=== PATIENT | female | born 1985 | race Caucasian/White ===

== ENCOUNTER 2022-02-22 17:06 | Emergency (ER) | payer OTHER, SELFPAY ==
[2022-02-22 17:10] VITALS: BP 135/70; PULSE 97; RESP 20; TEMP 36.7; O2SAT 97
--- NOTE | 2022-02-22 18:08 | ED.FEMALEGU ---
HPI - Female Genitourinary General Chief complaint: Urogenital-Female Stated complaint: poss uti Time Seen by Provider: 02/22/22 17:50 Source: patient, RN notes reviewed and old records reviewed History of Present Illness HPI Narrative: 36 year old female who presents to [facility] care with 4-5 day history of urinary pain, low back pain and urinary frequency. Patient reports that she has been drinking cranberry juice at home and feels that it has helped her symptoms some. Patient denies any known fevers, chills or sweats, denies any nausea or vomiting or acute abdominal pain.Patient reports that she has no vaginal discharge or itching or suspected STD exposure. Patient has not had Covid vaccinations or flu shot this season. MD elicited complaint: UTI Related Data Home Medications Medication Instructions Recorded Confirmed bupropion HCl 150 mg 24 hr tablet, 150 mg PO DIRECTED 02/22/22 02/22/22 extended release fluoxetine 20 mg tablet 20 mg DIRECTED 02/22/22 02/22/22 Allergies Allergy/AdvReac Type Severity Reaction Status Date / Time No Known Allergies Allergy Verified 01/27/22 15:34 Review of Systems Review of Systems: CONSTITUTIONAL: Denies fever, chills, or sweats. EYES: Denies visual changes, redness, or discharge. ENT: Denies rhinorrhea, congestion, sore throat, or otalgia. CARDIOVASCULAR: Denies chest pain, palpitations, or edema. RESPIRATORY: Denies cough or dyspnea. GASTROINTESTINAL: Denies abdominal pain, nausea, vomiting, or diarrhea. GENITOURINARY: Positive for dysuria no visible hematuria. SKIN: Denies rash or itching. MUSCULOSKELETAL: Low back pain, no joint pain, or body aches NEUROLOGIC: Denies headache, numbness, or weakness. PSYCHIATRIC: Positive for anxiety or depression. [facility] Past Medical History Medical History Anxiety Depression Encounter for screening examination for sexually transmitted disease Gonorrhea Trichomonal vaginitis Surgical History Surgical History Delivery by section 11/26/04 primary c/s 08/11/06 rpt c/s 05/16/08 rpt c/s w/tubal History of cholecystectomy History of hernia repair @ 5 months old History of orthopedic surgery rt wrist tendon transfer History of tubal ligation (~05/16/08) Family History Family History Mother Chronic obstructive lung disease Hypertension Social History Social History Smoking status: Current some day smoker Tobacco type: e-cigarettes/vaping Alcohol intake: never Substance use: never Substance use type: does not use Additional living arrangements comments: 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 There is no relevant family history pertinent to the presenting complaint Exam Narrative: GENERAL: Well-appearing, well-nourished, and in no acute distress. HEAD: Normocephalic, atraumatic. EYES: PERRLA and EOMI. ENT: Nares clear, no rhinorrhea or epistaxis. Mucous membranes moist.TM's normal with good light reflex, throat pink with no lesions or exudates or tonsil swelling NECK: Supple.no lymphadenopathy CHEST: Clear to auscultation. No respiratory distress. HEART: Regular rate and rhythm. No murmur heard. Normal peripheral pulses. ABDOMEN: Soft, nontender, nondistended, normal active bowel sounds.dysuria and frequency of urination EXTREMITIES: Normal range of motion. No edema.low back pain SKIN: Warm, dry, no rash. NEURO: No focal deficits. Alert and oriented x3. Course Course Level of Care: Express Care Visit Vital Signs Vital si
== END 2022-02-22 18:27 | disposition home or self-care (01) ==
PROVIDERS: Emergency Provider Registered Nurse; PCP Internal Medicine
DX: N39.0 Urinary tract infection, site not specified (principal); F17.290 Nicotine dependence, other tobacco product, uncomplicated
CPT/HCPCS: 81003; 87086; 87088; 99213; G0463

== ENCOUNTER 2022-04-12 18:22 | Emergency (ER) | payer OTHER, SELFPAY ==
[2022-04-12 18:32] VITALS: BP 124/72; PULSE 92; RESP 20; TEMP 36.7; O2SAT 100
--- NOTE | 2022-04-12 18:39 | ED.FEMALEGU ---
HPI - Female Genitourinary General Chief complaint: Urogenital-Female Stated complaint: Urinary Problem Time Seen by Provider: 04/12/22 18:39 Source: patient Mode of arrival: ambulatory Limitations: no limitations History of Present Illness HPI Narrative: Ms. Rios is a 36-year-old female patient presenting to the clinic today with complaints of urinary symptoms. She reports her symptoms have been going on for over a week. She notes some urinary irritation at the urethra, some low back pain, and at times urinary frequency. She denies any new sexual partners but also notes some vaginal discharge. Related Data Allergies Allergy/AdvReac Type Severity Reaction Status Date / Time No Known Allergies Allergy Verified 04/12/22 18:37 Review of Systems Review of Systems: Pertinent positives per HPI. Patient denies any fever, chills, rash, headache, visual changes, dizziness, cough, runny nose, sore throat, shortness of breath, chest pain, palpitations, nausea, vomiting, diarrhea, constipation, abdominal pain. PMFSH Past Medical History Medical History Anxiety Depression Encounter for screening examination for sexually transmitted disease Gonorrhea Trichomonal vaginitis Surgical History Surgical History Delivery by section 11/26/04 primary c/s 08/11/06 rpt c/s 05/16/08 rpt c/s w/tubal History of cholecystectomy History of hernia repair @ 5 months old History of orthopedic surgery rt wrist tendon transfer History of tubal ligation (~05/16/08) Family History Family History Mother Chronic obstructive lung disease Hypertension Social History Social History Smoking status: Current some day smoker Tobacco type: e-cigarettes/vaping Alcohol intake: never Substance use: never Substance use type: does not use Additional living arrangements comments: 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 There is no relevant family history pertinent to the patient complaint. Exam Narrative: General: Well-developed, well nourished, in no apparent distress. Head: Normocephalic, atraumatic. Cardio: Regular rate and rhythm, s1 and s2 normal, no murmur appreciated. Resp: Clear to auscultation bilaterally, no rhonchi, rales, wheezing or rubs. Abdomen: Soft, pliable, bowel sounds present in all quadrants, non-tender to palpation, no organomegly, no CVAT tenderness. : Pelvic exam performed with (Katharina so her external female genitalia was normal without lesions or masses meatus patient to follow-up in 2-3 days with primary care provider. Urinary meatus with patent without discharge, redness at bedside. Verbal consent obtained from patient. Normal external female genitalia without lesions or masses, Urinary meatus: patent without discharge,no mass Vagina: No lesions or masses, or discharge, white chunky vaginal discharge Cervix: pink without mass, lesions, discharge, or tenderness. Adnexa: without palpable mass or tenderness. Course Course Emergency Course: Portions of this record may have been created with voice recognition software. Level of Care: Express Care Visit Vital Signs Vital signs: Vital Signs Temperature 36.7 C 04/12/22 18:32 Pulse Rate 92 04/12/22 18:32 Respiratory Rate 20 04/12/22 18:32 Blood Pressure 124/72 04/12/22 18:32 Pulse Oximetry 100 04/12/22 18:32 Oxygen Delivery Room Air 04/12/22 18:32 Temperature 36.7 C 04/12/22 18:32 Pulse Rate
== END 2022-04-12 19:23 | disposition home or self-care (01) ==
PROVIDERS: Emergency Provider Nurse Practitioner Family; PCP Internal Medicine
DX: N89.8 Other specified noninflammatory disorders of vagina (principal); M54.50 Low back pain, unspecified; F17.290 Nicotine dependence, other tobacco product, uncomplicated
CPT/HCPCS: 81003; 87070; 87491; 87591; 87661; 99214; G0463

== ENCOUNTER 2022-04-28 00:47 | Day surgery (SDC) | payer OTHER, SELFPAY ==
[2022-04-20 10:23] VITALS: BMI 46.6
--- NOTE | 2022-04-20 10:31 | PC.NURSE ---
Report to the Outpatient Waiting Room, entrance under the green pavilion located off [facility], at time 0800 on date 04/28/22. OR Time: 1000. - You and your visitor will be asked to self-screen and do not enter if you have any COVID symptoms. - Only one visitor and NO children visitors are allowed at this time. - The patient visitor is requested to leave or wait in car when not with patient due to restrictions. - A mask is required within the hospital. Patients may have clear liquids (water, carbonated beverages, clear teas, apple juice) until 3 hours prior to surgery with a maximum of 20 ounces. - No food from midnight until time of surgery Take the following medications with a SIP of water the morning of surgery: N/A Medications to discontinue per physician: N/A Date to take last dose: N/A Please no make-up, nail albanian, hairspray, perfume, deodorant, or body powder the day of surgery. No jewelry (including any body piercings) or valuables the day of surgery, leave them at home. Please take a shower or bath the night before, or the morning of, surgery with an antibacterial soap. Wear comfortable, loose fitting clothing. - Jewelry must be removed prior to entering the operating room. Rings and piercings that are not removed may be cut off. - The hospital will not accept responsibility for valuables. - Please leave all valuables, including medications, at home the day of surgery. If you are going home after surgery, a licensed septic pump truck driver must drive you home. - NO public transportation without another adult. - We recommend that an adult stay with you for 24 hours following discharge. - We also recommend that you do not drive, make important decision, drink alcoholic beverages, or take any drugs that were not prescribed by your health care provider for at least 24 hours after your discharge time. Follow any additional instructions given to you from your surgeon. If you or anyone in your household have experienced Covid symptoms in the past week, please notify your surgeon or the nurse liaison at the phone number below for possible testing. Telephone instructions given to PT - CONNIE PATTERSON and asked if any additional questions and then verbalized understanding. Patient advised to call surgeon office or pre surgery nurse liaison [phone] if any additional questions.
--- NOTE | 2022-04-28 08:00 | P.HP_ITS ---
H&P: HPI History of Present Illness Date/Time: 04/28/22 08:00 36-year-old female presents for evaluation and treatment of heavy irregular vaginal bleeding. Menstrual cycles lasting 10 days 4-5 days heavy clotting and cramping this going on for the past 4-6 months and is increasing in severity. She has gotten to the point where she is unable to work at times and therefore presents again for evaluation and treatment. Ultrasound was performed revealed small fibroid but no other significant abnormalities, other options were discussed and she does desire to proceed as per the plan below. Chief Complaint: Menometrorrhagia PMFSH Past Medical History Medical History Anxiety Depression Encounter for screening examination for sexually transmitted disease Gonorrhea Trichomonal vaginitis Surgical History Surgical History Delivery by section 11/26/04 primary c/s 08/11/06 rpt c/s 05/16/08 rpt c/s w/tubal History of cholecystectomy History of hernia repair @ 5 months old History of orthopedic surgery rt wrist tendon transfer History of tubal ligation (~05/16/08) Family History Family History Mother Chronic obstructive lung disease Hypertension Social History Social History Smoking packs per day: 1 Smoking cigarettes per day: 20.0 Years smoked: 20 Smoking pack-years: 20.00 Smoking status: Current every day smoker Tobacco type: cigarettes Alcohol intake: never Substance use: never Substance use type: does not use Living arrangements: with family Additional living arrangements comments: CHILDREN 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 Gender identity (if verbalized by the patient): Female Sexual Orientation (if Verbalized by the Patient): Straight or Heterosexual Spiritual care concerns: No Meds Home Medications and Allergies Home Medications Medication Instructions Recorded Confirmed Type No Home Medications 04/20/22 04/20/22 History Allergies Allergy/AdvReac Type Severity Reaction Status Date / Time No Known Allergies Allergy Verified 04/20/22 10:23 Exam Const: General: cooperative, healthy appearing and comfortable Resp: Effort & Inspection: normal respiratory effort Auscultation: clear to auscultation bilaterally Cardio: Rate: regular rate Rhythm: regular rhythm GI: Inspection: normal to inspection Auscultation: normal bowel sounds : External Female Exam: normal external appearance Speculum Exam - Vagina: normal appearance of the vagina Speculum Exam - Cervix: normal appearance of the cervix Bimanual exam- vagina & uterus: normal bimanual exam Bimanual Exam- Adnexa, other: normal adnexae Assessment and Plan Assessment and plan (1) Menometrorrhagia: Code(s): N92.1 - Excessive and frequent menstruation with irregular cycle Status: Acute Assessment and Plan: Proceed with hysteroscopy D&C and endometrial ablation.
--- NOTE | 2022-04-28 08:03 | WPDHPUPDATE1 ---
History and Physical Update Update Date/Time: 04/28/22 08:03 History and Physical has been reviewed, including an updated exam of the patient. There are NO changes in the patient's condition. Risks, benefits, and alternatives have been discussed and questions answered. Patient agrees to proceed with procedure.
[2022-04-28 08:05] VITALS: BP 118/72; PULSE 61; RESP 16; TEMP 36.2; O2SAT 96
[2022-04-28] MEDS: ACETAMINOPHEN 500 MG TABLET 1000 MG PO (08:27)
[2022-04-28] MEDS: LACTATED RINGERS 1,000 ML 30 ML IV CONT (08:33)
--- NOTE | 2022-04-28 09:26 | P.PNAN_ITS ---
Anes - Initial Pre Proc Eval Procedure: Operation Date: 04/28/22 10:00 Proposed Procedures p Hysteroscopy, Dilation and Curettage, Leatha Endometrial Ablation - Bashir Baumann MD Date/Time: 04/28/22 09:26 Surgeon: Bashir Baumann MD Pre Op Diagnosis: menometrorrhagia Patient Data Age: 36 Gender: F Height: 1.7 m Weight: 137.7 kg Last Vital Signs Temp 97.1 F L 04/28/22 08:05 Pulse 61 04/28/22 08:05 Resp 16 04/28/22 08:05 BP 118/72 04/28/22 08:05 Pulse Ox 96 04/28/22 08:05 O2 Del Method Room Air 04/28/22 08:05 Allergies Allergy/AdvReac Type Severity Reaction Status Date / Time No Known Allergies Allergy Verified 04/28/22 08:24 Home Medications Medication Instructions Recorded Confirmed Type No Home Medications 04/20/22 04/28/22 History Patient hx anesthesia problems: none Family hx anesthesia problems: none Results Review: All pre-operative results and documents have been reviewed as part of the pre- operative evaluation. [facility] Past Medical History Medical History Anxiety Depression Encounter for screening examination for sexually transmitted disease Gonorrhea Trichomonal vaginitis Surgical History Surgical History Delivery by section 11/26/04 primary c/s 08/11/06 rpt c/s 05/16/08 rpt c/s w/tubal History of cholecystectomy History of hernia repair @ 5 months old History of orthopedic surgery rt wrist tendon transfer History of tubal ligation (~05/16/08) Family History Family History Mother Chronic obstructive lung disease Hypertension Social History Social History Smoking packs per day: 1 Smoking cigarettes per day: 20.0 Years smoked: 20 Smoking pack-years: 20.00 Smoking status: Current every day smoker Tobacco type: cigarettes Alcohol intake: never Substance use: never Substance use type: does not use Living arrangements: with family Additional living arrangements comments: CHILDREN 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 Gender identity (if verbalized by the patient): Female Sexual Orientation (if Verbalized by the Patient): Straight or Heterosexual Spiritual care concerns: No Anes - Eval Final PreProcedure Day of Procedure 04/28/22 09:26 Heart: regular rate and rhythm Lungs: clear to auscultation Airway: Mallampati scale class II Neurological: alert and oriented Last oral intake: >/= 8 hours ASA classification: III Anesthetic plan: proceed Anesthesia type and monitoring: general Other findings: GIVS Results Review: All pre-operative results and documents have been reviewed as part of the pre- operative evaluation. Informed Consent: The patient's anesthetic plan and its attendant risks and benefits were discussed with the patient/family/POA. Questions were solicited and answers provided to the satisfaction of the patient/family/POA.
[2022-04-28] MEDS: ceFAZolin 3 GM/D5W 100 ML 100 ML IVPB (09:37)
[2022-04-28] MEDS: LIDOCAINE HCL 1% PF 30 ML VIAL 10 ML INFILTRATE (09:53)
[2022-04-28 10:14] VITALS: BP 130/83; PULSE 77; RESP 16; O2SAT 98
--- NOTE | 2022-04-28 10:15 | W.PM.PROC2 ---
Procedure Note - Detailed Date of Procedure 04/28/22 Pre-op Diagnosis menometrorrhagia Post-op Diagnosis Same Procedure Performed 1. Hysteroscopy with uterine curettings 2. Endometrial ablation Surgeon Bashir Baumann MD Anesthesia MAC Findings mildly thickened cavity Description of Procedure patient prepped in usual manner this procedure. Cervix was dilated the hysteroscope placed which revealed thickened tissue as noted above. curettings were obtained and the endometrial ablation instrument was placed, cavity assessment was performed, and the instrument was activated. At the end the procedure good destruction was noted throughout. Patient was sent to recovery room in stable condition. Estimated Blood Loss -10.0 Urine Output -350.0 Drains No Packing No Pathology Yes Complications No immediate complications Condition Stable Disposition PACU [facility] Billing Surgery - Charge Forward: Surgery Billing
[2022-04-28] MEDS: fentaNYL CITRATE INJ (*CRX) 100 MCG/2 ML VIAL 25 MCG IV PUSH ×4 (10:37→10:58)
[2022-04-28 10:44] VITALS: BP 130/72; PULSE 57; RESP 16
[2022-04-28 11:00] VITALS: BP 138/75; PULSE 59; RESP 16
[2022-04-28] MEDS: oxyCODONE HCL (*CRX) 5 MG TAB IR PO (11:00)
[2022-04-28 11:30] VITALS: BP 135/77; PULSE 47; RESP 16
[2022-04-28 11:56] VITALS: BP 144/78; PULSE 46; RESP 16
== END 2022-04-28 12:08 | disposition home or self-care (01) ==
PROVIDERS: PCP Internal Medicine; Visit Provider Obstetrics & Gynecology
PROC: 0U5B8ZZ Destruction of Endometrium, Via Natural or Artificial Opening Endoscopic (ICD-10-PCS; CPT 58563; principal; 2022-04-28 10:00)
DX: N92.1 Excessive and frequent menstruation with irregular cycle (principal); F17.210 Nicotine dependence, cigarettes, uncomplicated
CPT/HCPCS: 58563; 88305; A9270; J0690; J2250; J2704; J3010; J7030; J7120

== ENCOUNTER 2022-05-27 15:43 | Emergency (ER) | payer OTHER, SELFPAY ==
--- NOTE | 2022-05-27 15:47 | ED.FEMALEGU ---
HPI - Female Genitourinary General Chief complaint: Urogenital-Female Stated complaint: Urinary Problem Time Seen by Provider: 05/27/22 15:47 Source: patient and RN notes reviewed History of Present Illness HPI Narrative: Patient is a 37-year-old female who presents the urgent care with complaints of a possible UTI. Patient states that for the last week she has felt some low back pain and fatigue and today woke up with urinary burning. Patient states that she has been prone to UTIs recently with the last 1 being in February. Patient states that recently she did have an ablation and she has been having some vaginal spotting. Patient is also currently being treated with Diflucan for possible yeast infection. Patient reports of some nausea but denies of any vomiting or fever. Patient has been taking ibuprofen. No other acute complaints. No acute distress noted. Patient read the plan of care. Some parts of this dictation were generated by voice recognition software and may contain typographical and/or grammatical inaccuracies. Related Data Home Medications Medication Instructions Recorded Confirmed albuterol sulfate 90 mcg/actuation 90 mcg inhalation Q4-6H PRN 05/27/22 05/27/22 aerosol inhaler Wheezing dicyclomine 20 mg tablet 20 mg PO BID 05/27/22 05/27/22 Allergies Allergy/AdvReac Type Severity Reaction Status Date / Time cephalexin [From Keflex] AdvReac Nausea Verified 05/27/22 15:57 Review of Systems Review of Systems: CONSTITUTIONAL: Denies fever, chills, or sweats. EYES: Denies visual changes, redness, or discharge. ENT: Denies rhinorrhea, congestion, sore throat, or otalgia. CARDIOVASCULAR: Denies chest pain, palpitations, or edema. RESPIRATORY: Denies cough or dyspnea. GASTROINTESTINAL: Reports of nausea without abdominal pain or vomiting GENITOURINARY: Reports of dysuria SKIN: Denies rash or itching. MUSCULOSKELETAL: Reports of low back pain NEUROLOGIC: Denies headache, numbness, or weakness. . All other systems reviewed are negative, except as documented in HPI. [facility] Past Medical History Medical History Anxiety Depression Encounter for screening examination for sexually transmitted disease Gonorrhea Trichomonal vaginitis Surgical History Surgical History Delivery by section 11/26/04 primary c/s 08/11/06 rpt c/s 05/16/08 rpt c/s w/tubal History of cholecystectomy History of hernia repair @ 5 months old History of hysteroscopy (04/28/22) hscope D&C/ Endometrial ablation History of orthopedic surgery rt wrist tendon transfer History of tubal ligation (~05/16/08) Family History Family History Mother Chronic obstructive lung disease Hypertension Social History Social History Smoking packs per day: 1 Smoking cigarettes per day: 20.0 Years smoked: 20 Smoking pack-years: 20.00 Smoking status: Current every day smoker Tobacco type: cigarettes Alcohol intake: never Substance use: never Substance use type: does not use Additional living arrangements comments: CHILDREN 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 There is no relevant family history pertinent to the patient complaint. Exam Narrative: GENERAL: This is a well-nourished, well-developed patient, in no apparent distress. HEAD: normocephalic, atraumatic. EYES: PERRL. Sclera clear/white. Vision is grossly intact. EARS: External ears normal NOSE: External nose normal with no obvious nasa
[2022-05-27 16:00] VITALS: BP 145/75; PULSE 85; RESP 18; TEMP 36.4; O2SAT 100
== END 2022-05-27 16:14 | disposition home or self-care (01) ==
PROVIDERS: Emergency Provider Nurse Practitioner Family; PCP Internal Medicine
DX: N39.0 Urinary tract infection, site not specified (principal); F17.210 Nicotine dependence, cigarettes, uncomplicated
CPT/HCPCS: 81003; 87086; 87088; 99213; G0463

== ENCOUNTER 2022-07-15 11:34 | Emergency (ER) | payer OTHER, SELFPAY ==
[2022-07-15 11:43] VITALS: BP 139/77; PULSE 84; RESP 20; TEMP 36.6; O2SAT 99
--- NOTE | 2022-07-15 11:51 | ED.URI ---
HPI - URI/Sore Throat General Chief Complaint: Upper Respiratory Infection Stated Complaint: Sore Throat Time Seen by Provider: 07/15/22 11:51 Source: patient Mode of arrival: ambulatory Limitations: no limitations History of Present Illness HPI Narrative: Lucero is a 37-year-old female patient presenting to the clinic today with complaints of a sore throat, cough, runny nose, and congestion times 4 days. She reports no known fever or chills. MD elicited complaint: sore throat and nasal congestion Related Data Home Medications Medication Instructions Recorded Confirmed gabapentin 400 mg capsule 400 mg PO BID 07/15/22 07/15/22 Allergies Allergy/AdvReac Type Severity Reaction Status Date / Time cephalexin [From Keflex] AdvReac Nausea Verified 05/27/22 15:57 Review of Systems Review of Systems: Pertinent positives per HPI. Patient denies any fever, chills, rash, headache, visual changes, dizziness, cough, shortness of breath, chest pain, palpitations, nausea, vomiting, diarrhea, constipation, abdominal pain, or any urinary issues. [facility] Past Medical History Medical History Anxiety Depression Encounter for screening examination for sexually transmitted disease Gonorrhea Trichomonal vaginitis Surgical History Surgical History Delivery by section 11/26/04 primary c/s 08/11/06 rpt c/s 05/16/08 rpt c/s w/tubal History of cholecystectomy History of hernia repair @ 5 months old History of hysteroscopy (04/28/22) hscope D&C/ Endometrial ablation History of orthopedic surgery rt wrist tendon transfer History of tubal ligation (~05/16/08) Family History Family History Mother Chronic obstructive lung disease Hypertension Social History Social History Smoking packs per day: 1 Smoking cigarettes per day: 20.0 Years smoked: 20 Smoking pack-years: 20.00 Smoking status: Current every day smoker Tobacco type: cigarettes Alcohol intake: never Substance use: never Substance use type: does not use Additional living arrangements comments: CHILDREN 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 There is no relevant family history pertinent to the patient complaint. Exam Narrative: General: Well-developed, Morbidly obese, in no apparent distress Head: Normocephalic, atraumatic Eyes: Pupils equally round and reactive to light bilaterally, EOM intact, sclera and conjunctive clear, no discharge, lids normal Ears: TMs intact and dull, ear canals clear, no drainage, grossly hearing normal. Nose: Nares patent, clear nasal discharge, no inflammation, no sinus tenderness. Mouth: Oral pharynx without lesions or masses, good dentition, MMM. oropharynx red Neck: Supple, trachea midline, no enlargement of anterior or posterior cervical nodes, no thyroid masses or goiter palpable. Cardio: Regular rate and rhythm, s1 and s2 normal, no murmur appreciated. Resp: Clear to auscultation bilaterally, no rhonchi, rales, wheezing or rubs Course Course Emergency Course: Portions of this record may have been created with voice recognition software. Level of Care: Express Care Visit Vital Signs Vital signs: Vital Signs Temperature 36.6 C 07/15/22 11:43 Pulse Rate 84 07/15/22 11:43 Respiratory Rate 20 07/15/22 11:43 Blood Pressure 139/77 07/15/22 11:43 Pulse Oximetry 99 07/15/22 11:43 Oxygen Delivery Room Air 07/15/22 11:43
== END 2022-07-15 12:25 | disposition home or self-care (01) ==
PROVIDERS: Emergency Provider Nurse Practitioner Family; PCP Internal Medicine
DX: B34.9 Viral infection, unspecified (principal); J06.9 Acute upper respiratory infection, unspecified; J02.9 Acute pharyngitis, unspecified; F17.210 Nicotine dependence, cigarettes, uncomplicated
CPT/HCPCS: 87081; 87880; 99213; G0463

== ENCOUNTER 2022-08-27 11:53 | Emergency (ER) | payer OTHER, SELFPAY ==
[2022-08-27 12:04] VITALS: BP 156/64; PULSE 89; RESP 18; TEMP 36.9; O2SAT 100
--- NOTE | 2022-08-27 12:28 | ED.GENADULT ---
HPI - General Adult General Chief complaint: Urogenital-Female Stated complaint: uti Source: patient Mode of arrival: ambulatory Limitations: no limitations History of Present Illness HPI narrative: Patient presents for evaluation of urinary symptoms since Monday of this week. Symptoms include urgency, frequency, dysuria, and suprapubic discomfort. She does have some low back pain but states that she has degenerative disc disease and chronic low back pain. Her current pain is unchanged in severity and quality from her chronic back pain. No fever, chills, nausea, vomiting. She does have some white vaginal discharge. She is sexually active with one male partner, not using condoms. She has a history of a tubal ligation. She states she has had several urinary tract infections over the past eight months. Related Data Home Medications Medication Instructions Recorded Confirmed gabapentin 400 mg capsule 400 mg PO BID 07/15/22 08/27/22 Allergies Allergy/AdvReac Type Severity Reaction Status Date / Time cephalexin [From Keflex] AdvReac Nausea Verified 08/27/22 12:08 Review of Systems Review of Systems: CONSTITUTIONAL: Denies fever, chills, or sweats. EYES: Denies visual changes, redness, or discharge. ENT: Denies rhinorrhea, congestion, sore throat, or otalgia. CARDIOVASCULAR: Denies chest pain, palpitations, or edema. RESPIRATORY: Denies cough or dyspnea. GASTROINTESTINAL: Reports suprapubic pain. Denies nausea, vomiting, or diarrhea. GENITOURINARY: Reports urinary urgency, frequency, dysuria and hesitancy. Reports white vaginal discharge SKIN: Denies rash or itching. MUSCULOSKELETAL: Reports chronic low back pain. Denies joint pain or myalgia NEUROLOGIC: Denies headache, numbness, dizziness, or weakness. PSYCHIATRIC: Denies anxiety or depression. [facility] Past Medical History Medical History Anxiety Depression Encounter for screening examination for sexually transmitted disease Gonorrhea Trichomonal vaginitis Surgical History Surgical History Delivery by section 11/26/04 primary c/s 08/11/06 rpt c/s 05/16/08 rpt c/s w/tubal History of cholecystectomy History of hernia repair @ 5 months old History of hysteroscopy (04/28/22) hscope D&C/ Endometrial ablation History of orthopedic surgery rt wrist tendon transfer History of tubal ligation (~05/16/08) Family History Family History Mother Chronic obstructive lung disease Hypertension Social History Social History Smoking packs per day: 1 Smoking cigarettes per day: 20.0 Years smoked: 20 Smoking pack-years: 20.00 Smoking status: Current every day smoker Tobacco type: cigarettes Alcohol intake: never Substance use: never Substance use type: does not use Additional living arrangements comments: CHILDREN 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 HEAD: Normocephalic, atraumatic. EYES: PERRLA and EOMI. ENT: Nares clear, no rhinorrhea or epistaxis. Mucous membranes moist. Oropharynx without tonsillar hypertrophy exudate or other lesions. Bilateral TMs pearly hoover nonbulging NECK: Supple. No adenopathy or masses. No carotid bruits or JVD CHEST: Clear to auscultation. No respiratory distress. No wheezes rales or rhonchi HEART: Regular rate and rhythm. No murmur heard. Normal peripheral pulses. ABDOMEN: Soft, nontender, nondistended, normal active bowel sounds. EXTREMITIES: Normal range of motion. No edema. BACK: No CVA tend
== END 2022-08-27 13:00 | disposition home or self-care (01) ==
PROVIDERS: Emergency Provider Nurse Practitioner; PCP Internal Medicine
DX: N39.0 Urinary tract infection, site not specified (principal); F17.210 Nicotine dependence, cigarettes, uncomplicated
CPT/HCPCS: 81003; 87077; 87086; 87186; 87491; 87591; 87661; 99214; G0463

== ENCOUNTER 2022-09-30 15:30 | Emergency (ER) | payer OTHER, SELFPAY ==
[2022-09-30 15:38] VITALS: BP 136/73; PULSE 90; RESP 20; TEMP 36.7; O2SAT 100
--- NOTE | 2022-09-30 15:46 | ED.FEMALEGU ---
HPI - Female Genitourinary General Chief complaint: Urogenital-Female Stated complaint: Poss UTI Time Seen by Provider: 09/30/22 15:46 Source: patient Mode of arrival: ambulatory Limitations: no limitations History of Present Illness HPI Narrative: Ms. Rios is a 37-year-old female patient presenting to the clinic today with complaints of possible urinary tract infection x1 week. Patient is having urinary frequency, urgency, dysuria, and low urine output Related Data Home Medications Medication Instructions Recorded Confirmed gabapentin 400 mg capsule 400 mg PO TID 07/15/22 09/30/22 baclofen 20 mg tablet 20 mg PO BID 09/30/22 09/30/22 Allergies Allergy/AdvReac Type Severity Reaction Status Date / Time cephalexin [From Keflex] AdvReac Nausea Verified 09/30/22 15:54 Review of Systems Review of Systems: Pertinent positives per HPI. Patient denies any fever, chills, rash, headache, visual changes, dizziness, cough, runny nose, sore throat, shortness of breath, chest pain, palpitations, nausea, vomiting, diarrhea, constipation, abdominal pain. [facility] Past Medical History Medical History Anxiety Depression Encounter for screening examination for sexually transmitted disease Gonorrhea Trichomonal vaginitis Surgical History Surgical History Delivery by section 11/26/04 primary c/s 08/11/06 rpt c/s 05/16/08 rpt c/s w/tubal History of cholecystectomy History of hernia repair @ 5 months old History of hysteroscopy (04/28/22) hscope D&C/ Endometrial ablation History of orthopedic surgery rt wrist tendon transfer History of tubal ligation (~05/16/08) Family History Family History Mother Chronic obstructive lung disease Hypertension Social History Social History Smoking packs per day: 1 Smoking cigarettes per day: 20.0 Years smoked: 20 Smoking pack-years: 20.00 Smoking status: Current every day smoker Tobacco type: cigarettes Alcohol intake: never Substance use: never Substance use type: does not use Living arrangements: with family Additional living arrangements comments: CHILDREN Occupation/Education: occupation 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 There is no relevant family history pertinent to the patient complaint. Exam Narrative: General: Well-developed, morbidly obese, in no apparent distress. Head: Normocephalic, atraumatic. Cardio: Regular rate and rhythm, s1 and s2 normal, no murmur appreciated. Resp: Clear to auscultation bilaterally, no rhonchi, rales, wheezing or rubs. Abdomen: Soft, pliable, bowel sounds present in all quadrants, non-tender to palpation, no organomegly, no CVAT tenderness. Course Course Emergency Course: Portions of this record may have been created with voice recognition software. Level of Care: Express Care Visit Vital Signs Vital signs: Vital Signs Temperature 36.7 C 09/30/22 15:38 Pulse Rate 90 09/30/22 15:38 Respiratory Rate 20 09/30/22 15:38 Blood Pressure 136/73 09/30/22 15:38 Pulse Oximetry 100 09/30/22 15:38 Oxygen Delivery Room Air 09/30/22 15:38 Temperature 36.7 C 09/30/22 15:38 Pulse Rate 90 09/30/22 15:38 Respiratory Rate 20 09/30/22 15:38 Blood Pressure 136/73 09/30/22 15:38 Pulse Oximetry 100 09/30/22 15:38 Oxygen Delivery Room Air 09/30/22 15:38 Vital signs reviewed MDM - Female Genitourinary MDM Narrative M
== END 2022-09-30 15:57 | disposition home or self-care (01) ==
PROVIDERS: Emergency Provider Nurse Practitioner Family; PCP Internal Medicine
DX: N39.0 Urinary tract infection, site not specified (principal); F17.210 Nicotine dependence, cigarettes, uncomplicated
CPT/HCPCS: 81003; 87086; 87088; 99213; G0463

== ENCOUNTER 2023-08-23 16:23 | Emergency (ER) | payer BC, SELFPAY ==
--- NOTE | ~2023-08-23 | CT_ITS ---
EXAMINATION: CT abdomen pelvis w con DATE: 08/23/2023 19:21 INDICATION: Low abdominal pain. TECHNIQUE: Computed tomography (CT) of the abdomen and pelvis was performed with 100 mL Omnipaque 350 intravenous contrast. Automated exposure control and iterative reconstruction technique were employe d. The dose-length product was 1484.76 mGy-cm. COMPARISON: None. FINDINGS: The visualized portions of the lung bases demonstrate minimal atelectasis. No pleural effus ion. The heart size is normal. No pericardial effusion. There is mild intrahepatic biliary duct dilat ation and dilatation of the common duct 14 mm, likely not clinically significant given the normal luis enrique er function tests. There are changes of cholecystectomy. The spleen, pancreas, and adrenal glands are normal. There are cysts in the kidneys measuring up to 12 mm on the left. There are no dilated loops of bowel. The appendix is normal. There are no pathologically enlarged lymph nodes. There is no free intraperitoneal fluid. There is severe lower lumbar spondylosis. IMPRESSION: 1. No etiology for the patient's symptoms. Reviewed, dictated and finalized at location E. NEERING ADMINISTRATOR
--- NOTE | ~2023-08-23 | US_ITS ---
EXAMINATION: US pelvic complete w TV DATE: 08/23/2023 19:55 INDICATION: Pelvic pain. TECHNIQUE: Multiple transabdominal and transvaginal sonographic images of the pelvis were obtained. COMPARISON: CT abdomen and pelvis 08/23/2023 FINDINGS: TRANSABDOMINAL ULTRASOUND: The uterus measures 8.0 x 4.9 x 5.8 cm. There is no free fluid in the pelvis. TRANSVAGINAL ULTRASOUND: The endometrial complex measures 9 mm in thickness. There are nabothian cysts in the cervix. The ovar ies are not visualized. IMPRESSION: 1. No etiology for the patient's symptoms. 2. Ovaries not visualized. Reviewed, dictated and finalized at location E. OR PRINCIPAL
[2023-08-23 16:27] VITALS: BP 135/73; PULSE 94; RESP 18; TEMP 36.6; O2SAT 100
--- NOTE | 2023-08-23 16:35 | ED.ABDPAIN ---
HPI - Abdominal Pain General Chief Complaint: Abdominal Pain Stated Complaint: abd pain Time Seen by Provider: 08/23/23 16:35 History of Present Illness HPI narrative: Patient is a 38-year-old female here with abdominal pain. She states that about a year ago she had an endometrial ablation, this is performed due to heavy periods. She states that since that time she has had light periods but has significant pain with her periods. She notes that she is currently on her cycle and notes that she is having severe abdominal cramping which began in her suprapubic region and radiate upwards, describes them as feeling like contractions in with a cramping pain. She attempted to take gabapentin and Tylenol today without any relief of her symptoms. She has 1 sexual partner, does not use protection, did note that she had some vaginal discharge prior to beginning this menstrual cycle which resolved after a boric acid suppositories. No fever chills. She does note about 5 episodes of diarrhea today which she attributed to her abdominal pain. She contact her [facility] clinic and they referred her into the emergency department given her significant pain. She has a follow-up appointment with them on September 04. No urinary symptoms. Related Data Home Medications Medication Instructions Recorded Confirmed gabapentin 400 mg capsule 400 mg PO TID 07/15/22 01/23/23 baclofen 20 mg tablet 20 mg PO BID 09/30/22 01/23/23 Allergies Allergy/AdvReac Type Severity Reaction Status Date / Time cephalexin [From Keflex] AdvReac Nausea Verified 01/23/23 15:25 Review of Systems Review of Systems: All systems reviewed & are unremarkable except as noted in HPI and below PMFSH Past Medical History Medical History (Updated 08/23/23 @ 21:45 by Dona Peterson MD) Anxiety Degenerated intervertebral disc Depression Encounter for screening examination for sexually transmitted disease Foraminal stenosis of lumbar region Gonorrhea Osteoarthritis Trichomonal vaginitis Surgical History Surgical History Delivery by section 11/26/04 primary c/s 08/11/06 rpt c/s 05/16/08 rpt c/s w/tubal History of cholecystectomy History of hernia repair @ 5 months old History of hysteroscopy (04/28/22) hscope D&C/ Endometrial ablation History of orthopedic surgery rt wrist tendon transfer History of tubal ligation (~05/16/08) Family History Family History Mother Chronic obstructive lung disease Hypertension Social History Social History (Updated 01/23/23 @ 15:34 by FADI Blackman) Smoking packs per day: 1 Smoking cigarettes per day: 20.0 Years smoked: 20 Smoking pack-years: 20.00 Smoking status: Current every day smoker Tobacco type: cigarettes Alcohol intake: current Alcohol use details: 2 a year Substance use: never Substance use type: does not use Lack of Transportation: No Lack of Food: Never True Current Housing: I Have Housing Concerned About Future Housing: No Difficulty Paying Gas/Electric Bills: No Difficulty Paying for Meds: No Currently Unemployed: No Education: High School Diploma/GED Difficulty w/ Childcare or Family Care: No Living arrangements: with family Additional living arrangements comments: CHILDREN/ Occupation/Education: occupation 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 HEAD: Normocephalic, atraumatic. EYES: PERRLA and EOMI. ENT: Nares clear. Mucous membranes moist. NECK: Supple. CHEST: Clear to auscultation. No respiratory distress. HEART: Regular rate and rhythm. Normal peripheral pu
[2023-08-23] MEDS: ONDANSETRON INJ 4 MG/2 ML VIAL IV PUSH (17:08)
[2023-08-23] MEDS: MORPHINE SULFATE (*CRX) 4 MG/ML INJ IV PUSH (17:09)
[2023-08-23 17:21] LABS: Basophils Absolute Auto 0.1 K/mm3 (0.0-0.1); Basophils Percent Auto 0.4 % (0.2-1.2); Eosinophils Percent Auto 0.1 % (0-4.4); Hemoglobin 15.1 g/dL (12.0-15.0); Immature Granulocyte Absolute 0.04 K/mm3 (0.00-0.031); Immature Granulocyte Percent A 0.3 % (0-0.5); Lymphocytes Absolute Auto 2.18 K/mm3 (0.9-3.2); Lymphocytes Percent Auto 14.3 % (18.3-44.2); Mean Corpuscular HGB Conc 32.1 g/dl (32-36); Mean Corpuscular Hemoglobin 29.9 pg (26-34); Mean Corpuscular Volume 93.1 fl (80-100); Mean Platelet Volume 12.1 fl (7.4-10.4); Monocytes Absolute Auto 0.8 K/mm3 (0.1-0.6); Monocytes Percent Auto 5.5 % (2.6-8.5); Neutrophils Absolute Auto 12.1 K/mm3 (1.3-6.7); Neutrophils Percent Auto 79.4 % (45.5-73.1); Platelet Count Result 153 k/mm3 (150-375); Red Blood Count 5.05 M/mm3 (4.2-5.4); Red Cell Distribution Width 13.2 % (11.5-14.5); White Blood Count 15.3 K/mm3 (4.5-10.0)
[2023-08-23 17:32] LABS: Alanine Aminotransferase 19 U/L (6-35); Albumin Level 4.8 g/dL (3.5-5.1); Alkaline Phosphatase 65 U/L (38-126); Anion Gap 10 mmol/L (8-16); Aspartate Amino Transferase 21 U/L (14-36); Bilirubin,Total 0.6 mg/dL (0.2-1.3); Blood Urea Nitrogen 12 mg/dL (7-17); Calcium 9.3 mg/dL (8.4-10.2); Carbon Dioxide 26 mmol/L (22-30); Chloride 102 mmol/L (98-107); Estimated CRCL calculation 110 ml/min; Estimated Glomerular Filt Rate > 60; Glucose 87 mg/dL (65-110); Lipase 80 U/L (23-300); Potassium 3.3 mmol/L (3.4-5.0); Sodium 138 mmol/L (137-145)
[2023-08-23 17:37] LABS: Appearance Urine Clear (Clear); Bacteria Urine Rare /hpf; Bilirubin Urine Negative (Negative); Blood Urine 3+ (Negative); Color Urine Yellow (Yellow); Glucose Urine UA Negative (Negative); Ketones Urine Negative (Negative); Leukocyte Esterase Ur Negative LEU/UL (Negative); Need Manual Microscopic Reviewed; Nitrate Urine Negative (Negative); Non Pathogenic Casts 0-2; Protein Urine Negative (Negative); RBC Urine 0-2 /hpf (0-2); Specific Grav Ur 1.003 (1.001-1.035); Squamous Epithelial Cell Urine Occasional /hpf (Few); Urobilinogen Urine 0.2 mg/dL (<2.0); WBC Urine 0-5 /hpf
[2023-08-23 17:38] LABS: Add Urine Microscopic? YES
[2023-08-23 19:15] LABS: Trichomonas Vag PCR NOT DETECTED (NOT DETECTE)
[2023-08-23 19:50] VITALS: BP 118/80; PULSE 93; RESP 20; O2SAT 98
[2023-08-23] MEDS: HYDROmorphone HCL INJ (*CRX) 1 MG/ML SYR IV PUSH (19:53)
[2023-08-23 20:13] VITALS: BP 126/86; PULSE 78; RESP 16; TEMP 36.8; O2SAT 97
[2023-08-23 21:06] LABS: Chlamydia trachomatis NOT DETECTED (NOT DETECTE); Neisseria gonorrhoeae PCR NOT DETECTED (NOT DETECTE)
[2023-08-23] MEDS: DICYCLOMINE HCL INJ 20 MG/2 ML VIAL IM (21:07)
[2023-08-26 22:12] LABS: Bacterial Vaginosis Positive (Negative)
== END 2023-08-23 21:53 | disposition home or self-care (01) ==
PROVIDERS: Emergency Provider Student in an Organized Health Care Education/Training Program; PCP Internal Medicine
DX: R10.84 Generalized abdominal pain (principal); M19.90 Unspecified osteoarthritis, unspecified site; F17.210 Nicotine dependence, cigarettes, uncomplicated; Z87.440 Personal history of urinary (tract) infections; Z90.49 Acquired absence of other specified parts of digestive tract
CPT/HCPCS: 36415; 74177; 76830; 76856; 80053; 81001; 81025; 81513; 83690; 85025; 87491; 87591; 87661; 96372; 96374; 96375; 99284; J0500; J1170; J2270; J2405; Q9967

== ENCOUNTER 2023-09-22 11:54 | Outpatient (CLI) | payer BC, SELFPAY | END 2023-09-22 11:55 | disposition home or self-care (01) | PROVIDERS: PCP Internal Medicine; Visit Provider Obstetrics & Gynecology | DX: Z01.812 Encounter for preprocedural laboratory examination (principal); N94.6 Dysmenorrhea, unspecified | CPT/HCPCS: 36415; 86850; 86900; 86901 ==

== ENCOUNTER 2023-09-28 00:27 | Day surgery (SDC) | payer BC, SELFPAY ==
[2023-09-18 12:00] VITALS: BMI 39.7
--- NOTE | 2023-09-18 12:05 | PC.NURSE ---
Report to the Outpatient Waiting Room, entrance under the green pavilion located off [facility], at time 6:00 on date 09/28/23. Planned Procedure Time: 7:30. Time changes happen often and if your time is changed the preop area will call you the afternoon before. - You and your visitor will be asked to self-screen and do not enter if you have any COVID symptoms. - A mask is optional within the hospital at this time. Patients may have clear liquids (water, carbonated beverages, clear teas, apple juice) until 3 hours prior to surgery (4:30) with a maximum of 20 ounces. - No food from midnight until time of surgery Take the following medications with a SIP of water the morning of surgery: GABAPENTIN IF NEEDED DO NOT STOP ANY OF YOUR OTHER PRESCRIPTION MEDICATIONS PRIOR TO SURGERY ?EXCEPT THE FOLLOWING Medications to discontinue per physician: N/A Date to take last dose: N/A Please no make-up, nail ku[place]i, hairspray, perfume, deodorant, or body powder the day of surgery. No jewelry (including any body piercings) or valuables the day of surgery, leave them at home. Please take a shower or bath the night before, or the morning of, surgery with an antibacterial soap. Wear comfortable, loose fitting clothing. - Jewelry must be removed prior to entering the operating room. Rings and piercings that are not removed may be cut off. - The hospital will not accept responsibility for valuables. - Please leave all valuables, including medications, at home the day of surgery. If you are going home after surgery, a licensed service car driver must drive you home. - NO public transportation without another adult if you receive anesthesia. - We recommend that an adult stay with you for 24 hours following discharge. - We also recommend that you do not drive, make important decision, drink alcoholic beverages, or take any drugs that were not prescribed by your health care provider for at least 24 hours after your discharge time. Follow any additional instructions given to you from your surgeon. If you or anyone in your household have experienced Covid symptoms in the past week, please notify your surgeon or the nurse liaison at the phone number below for possible testing. Telephone instructions given to PT - CONNIE PATTERSON and asked if any additional questions and then verbalized understanding. Patient advised to call surgeon office or pre surgery nurse liaison [phone] if any additional questions.
[2023-09-28] VITALS (10 sets, daily range): BP systolic 96–125; BP diastolic 56–78; PULSE 60–86; RESP 12–18; TEMP 36.1–36.7; O2SAT 95–100
[2023-09-28] MEDS: LACTATED RINGERS 1,000 ML 30 ML IV CONT ×2 (06:45→09:19)
--- NOTE | 2023-09-28 06:48 | WPDANESEPPF ---
Anes - Initial Pre Proc Eval Procedure: Operation Date: 09/28/23 07:30 Proposed Procedures p Robotic Assisted Total Laparoscopic Hysterectomy with Bilateral Salpingectomy - Bashir Baumann MD Date/Time: 09/28/23 06:48 Surgeon: Bashir Baumann MD Pre Op Diagnosis: dysmenorrhea Patient Data Age: 38 Gender: F Height: 1.7 m Weight: 115.2 kg Allergies Allergy/AdvReac Type Severity Reaction Status Date / Time Penicillins Allergy Unknown Verified 09/18/23 11:59 cephalexin [From Keflex] AdvReac Nausea Verified 09/18/23 11:59 Home Medications Medication Instructions Recorded Confirmed Type gabapentin 400 mg capsule 400 mg PO TID 07/15/22 09/18/23 History Patient hx anesthesia problems: none Family hx anesthesia problems: none Results Review: All pre-operative results and documents have been reviewed as part of the pre-operative evaluation. [facility] Past Medical History Medical History Anxiety Degenerated intervertebral disc Depression Encounter for screening examination for sexually transmitted disease Foraminal stenosis of lumbar region Gonorrhea Osteoarthritis Trichomonal vaginitis Surgical History Surgical History Delivery by section 11/26/04 primary c/s 08/11/06 rpt c/s 05/16/08 rpt c/s w/tubal History of cholecystectomy History of hernia repair @ 5 months old History of hysteroscopy (04/28/22) hscope D&C/ Endometrial ablation History of orthopedic surgery rt wrist tendon transfer History of tubal ligation (~05/16/08) Family History Family History Mother Chronic obstructive lung disease Hypertension Social History Social History Smoking packs per day: 1 Smoking cigarettes per day: 20.0 Years smoked: 20 Smoking pack-years: 20.00 Smoking status: Current every day smoker Tobacco type: e-cigarettes/vaping Alcohol intake: never Alcohol use details: 2 a year Substance use: never Substance use type: does not use Lack of Transportation: No Lack of Food: Never True Current Housing: I Have Housing Concerned About Future Housing: No Difficulty Paying Gas/Electric Bills: No Difficulty Paying for Meds: No Currently Unemployed: No Education: High School Diploma/GED Difficulty w/ Childcare or Family Care: No Living arrangements: with family Additional living arrangements comments: CHILDREN Occupation/Education: occupation 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 Gender identity (if verbalized by the patient): Female Sexual Orientation (if Verbalized by the Patient): Straight or Heterosexual Spiritual care concerns: No Anes - Eval Final PreProcedure Day of Procedure 09/28/23 06:48 Patient weight: morbidly obese Heart: regular rate and rhythm Lungs: clear to auscultation Airway: Mallampati scale class II Neurological: alert and oriented Last oral intake: >/= 8 hours ASA classification: III Emergent: no Anesthetic plan: proceed Anesthesia type and monitoring: general ETT and standard monitoring Results Review: All pre-operative results and documents have been reviewed as part of the pre-operative evaluation. Informed Consent: The patient's anesthetic plan and its attendant risks and benefits were discussed with the patient/family/POA. Questions were solicited and answers provided to the satisfaction of the patient/family/POA.
[2023-09-28] MEDS: ACETAMINOPHEN 500 MG TABLET 1000 MG PO (07:00)
[2023-09-28] MEDS: KETOROLAC 15 MG/ML VIAL (*BKC) IV PUSH (07:00)
--- NOTE | 2023-09-28 07:12 | WPDHPUPDATE1 ---
History and Physical Update Update Date/Time: 09/28/23 07:12 Proceed with robotic assisted laparoscopic total hysterectomy with bilateral salpingectomy/NO oophorectomy History and Physical has been reviewed, including an updated exam of the patient. There are NO changes in the patient's condition. Risks, benefits, and alternatives have been discussed and questions answered. Patient agrees to proceed with procedure.
[2023-09-28] MEDS: ceFAZolin 2 GM/D5W 50 ML 2 GM/50 ML BAG IVPB (07:30)
[2023-09-28] MEDS: SCOPOLAMINE 1 MG PATCH 1 PATCH TRANSDERM (07:30)
--- NOTE | 2023-09-28 09:32 | W.PM.PROC2 ---
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 Menorrhagia 3. Dysmenorrhea 4. Prior delivery x 3 Post-op Diagnosis Same Procedure Performed Robotic assisted hysterectomy with bilateral salpingectomy Surgeon Bashir Baumann MD Anesthesia General Findings Uterus moderately enlarged, ovaries without abnormality. Dense adhesions of the bladder to the anterior cervix. Description of Procedure Patient prepped draped in usual manner procedure. Cervical instruments were placed for uterine mobility throughout case. Abdominal trocar sites were then marked and trocars were then placed under direct visualization. De Keven system was attached, instruments were placed and surgeon moved to the console. Findings were noted as above and 1st the mesial salpinx was cauterized and cut bilaterally and tubes removed without difficulty. Round ligaments were cauterized and cut the posterior leaf of broad ligament was incised this was carried across the posterior portion of the uterus. Prior to the anterior/bladder flap being formed the bladder was filled with 200cc of fluid to be able to delineate the location of the bladder and its parameters. Once this was done interior portion of peritoneum was then incised and the bladder flap was developed. After being developed again insufflated with 200cc dye colored fluid which filled the bladder but did not spill. Uterine vessels were then skeletonized cauterized and cut. The posterior cul-de-sac was then entered and this was carried circumferentially to separate the cervix from the vagina. Uterus was then delivered into the vagina. Bladder was again filled prior to closing the vaginal cuff with good expansion and no spilling. Cuff was then closed using V lock suture from the right angle to midline and from the left angle midline good approximation hemostasis noted. Patient was then placed in reverse Trendelenburg to allow all fluid to be drained into the cul-de-sac. This was then removed patient was placed in level position and Valerie was placed empirically over the incision of the vagina. No bleeding or evidence of other abnormalities at this point seizure was considered terminated. Gas was allowed to escape trocars removed and incisions approximated 4-0 Monocryl. Patient was then sent to recovery room in stable condition. Estimated Blood Loss 100 Drains No Packing No Pathology Yes Complications No immediate complications Condition Stable Disposition PACU [facility] Billing Surgery - Charge Forward: Surgery Billing
[2023-09-28] MEDS: fentaNYL CITRATE INJ (*CRX) 100 MCG/2 ML VIAL 25 MCG IV PUSH ×4 (09:38→09:53)
--- NOTE | 2023-09-28 10:29 | PC.NURSE ---
This patient, Lucero Rios, was received from PACU via bed on 09/28/23 at 1029. Patient/family oriented to unit policies and routines.
[2023-09-28] MEDS: DEXTROSE 5%/LACTATED RINGERS 1,000 ML 125 ML IV CONT (11:18)
[2023-09-28] MEDS: HYDROcodone/acetaminophen (*CRX) 5-325 MG TABLET 1 TAB PO ×2 (11:18→14:26)
[2023-09-28] MEDS: SIMETHICONE 80 MG TAB.CHEW PO ×2 (11:18→16:46)
[2023-09-28] MEDS: IBUPROFEN 600 MG TABLET PO (14:25)
[2023-09-28] MEDS: GABAPENTIN 400 MG CAPSULE PO ×2 (14:25→16:46)
[2023-09-28] MEDS: HYDROcodone/acetaminophen (*CRX) 10-325 MG TABLET 1 TAB PO (19:10)
[2023-09-29 00:20] VITALS: BP 82/47; PULSE 58; RESP 15; TEMP 37.2; O2SAT 99
[2023-09-29] MEDS: HYDROcodone/acetaminophen (*CRX) 10-325 MG TABLET 1 TAB PO (00:20)
[2023-09-29 00:50] VITALS: BP 91/65
[2023-09-29] MEDS: LACTATED RINGERS 1,000 ML 999 ML (01:34)
[2023-09-29 04:00] VITALS: BP 96/55; PULSE 70; RESP 16; TEMP 37.1; O2SAT 98
[2023-09-29 04:46] LABS: Basophils Percent Auto 0.3 % (0.2-1.2); Hematocrit 39.1 % (37.0-47.0); Hemoglobin 12.7 g/dL (12.0-15.0); Immature Granulocyte Absolute 0.02 K/mm3 (0.00-0.031); Immature Granulocyte Percent A 0.2 % (0-0.5); Lymphocytes Absolute Auto 1.88 K/mm3 (0.9-3.2); Lymphocytes Percent Auto 18.6 % (18.3-44.2); Mean Corpuscular HGB Conc 32.5 g/dl (32-36); Mean Corpuscular Volume 92.4 fl (80-100); Mean Platelet Volume 11.9 fl (7.4-10.4); Monocytes Absolute Auto 0.7 K/mm3 (0.1-0.6); Monocytes Percent Auto 7.3 % (2.6-8.5); Neutrophils Absolute Auto 7.4 K/mm3 (1.3-6.7); Neutrophils Percent Auto 73.6 % (45.5-73.1); Platelet Count Result 146 k/mm3 (150-375); Red Blood Count 4.23 M/mm3 (4.2-5.4); White Blood Count 10.1 K/mm3 (4.5-10.0)
[2023-09-29] MEDS: GABAPENTIN 400 MG CAPSULE PO (07:19)
[2023-09-29] MEDS: IBUPROFEN 600 MG TABLET PO (07:20)
[2023-09-29] MEDS: SIMETHICONE 80 MG TAB.CHEW PO (07:21)
[2023-09-29 08:15] VITALS: BP 105/66; PULSE 71; RESP 16; TEMP 37.2; O2SAT 99
--- NOTE | 2023-09-29 09:56 | WPDANESPN ---
Anes - Prog Note Post-Op Date/Time: 09/29/23 09:56 Cardiovascular status: normal Respiratory status: normal Airway patency: baseline Mental status: baseline Post-Op hydration status: normal Vital Signs: Last Vital Signs Temp 37.2 C 09/29/23 08:15 Pulse 71 09/29/23 08:15 Resp 16 09/29/23 08:15 BP 105/66 09/29/23 08:15 Pulse Ox 99 09/29/23 08:15 O2 Del Method Room Air 09/28/23 19:10 O2 Flow Rate 8 09/28/23 09:45 Pain Score (VAS): 0 I/O: Intake & Output 09/28/23 09/29/23 09/29/23 23:59 07:59 15:59 Intake Total 440 Balance 440 Laboratory Tests 09/29/23 04:02 09/29/23 04:02 WBC 10.1 H RBC 4.23 Hgb 12.7 Hct 39.1 MCV 92.4 MCH 30.0 MCHC 32.5 RDW 13.0 Plt Count 146 L MPV 11.9 H Immature Gran % (Auto) 0.2 Neut % (Auto) 73.6 H Lymph % (Auto) 18.6 [place] % (Auto) 7.3 Eos % (Auto) 0.0 Baso % (Auto) 0.3 Lymph # (Auto) 1.88 [place] # (Auto) 0.7 H Eos # (Auto) 0.0 Baso # (Auto) 0.0 Abs Immat Gran (auto) 0.02 Absolute Neuts (auto) 7.4 H Absolute Nucleated RBC 0.0 Nucleated RBC % 0.0 Post-procedural complaints: none Patient Feedback: Patient satisfied with anesthetic care.
== END 2023-09-29 09:51 | disposition home or self-care (01) ==
LOC: ANHSURGERY 05:48 → ANHOB2 10:30
PROVIDERS: PCP Internal Medicine; Visit Provider Obstetrics & Gynecology
PROC: (CPT 58571; principal; 2023-09-28 07:30)
DX: N99.85 Post endometrial ablation syndrome (principal); D25.1 Intramural leiomyoma of uterus; N80.203 Endometriosis of bilateral fallopian tubes, unspecified depth; N73.6 Female pelvic peritoneal adhesions (postinfective); N92.0 Excessive and frequent menstruation with regular cycle; N94.6 Dysmenorrhea, unspecified; F17.290 Nicotine dependence, other tobacco product, uncomplicated; E66.01 Morbid (severe) obesity due to excess calories; Z68.41 Body mass index [BMI] 40.0-44.9, adult
CPT/HCPCS: 58571; S2900; 36415; 85025; 86850; 86900; 86901; 88307; 99199; A9270; J0690; J1100; J1170; J1885; J2001; J2250; J2405; J2704; J3010; J7030; J7120; J7121; Q9968

== ENCOUNTER 2023-12-14 13:31 | Emergency (ER) | payer BC, SELFPAY ==
[2023-12-14 13:40] VITALS: BP 126/64; PULSE 93; RESP 20; TEMP 36.8; O2SAT 100
--- NOTE | 2023-12-14 14:04 | ED.GENADULT ---
HPI - General Adult General Chief complaint: Upper Respiratory Infection Stated complaint: Congestion/sob/tight chesst Time Seen by Provider: 12/14/23 14:04 Source: patient, RN notes reviewed and old records reviewed Mode of arrival: ambulatory Limitations: no limitations History of Present Illness HPI narrative: 38-year-old female to [facility] for complaint of headache, nausea, chills, hot flashes, facial pressure, for 5 days. Patient denies fever, vomiting, diarrhea, shortness, chest pain. Patient endorses history of bronchitis. Patient in no acute distress. Respirations even and nonlabored. Able to tolerate fluids by mouth. Related Data Home Medications Medication Instructions Recorded Confirmed No Home Medications 12/14/23 12/14/23 Allergies Allergy/AdvReac Type Severity Reaction Status Date / Time Penicillins Allergy Unknown Verified 12/14/23 13:36 cephalexin [From Keflex] AdvReac Nausea Verified 12/14/23 13:36 Review of Systems Review of Systems: All systems reviewed & are unremarkable except as noted in HPI and below Constitutional: Constitutional: Reports as per HPI, Reports body ache(s), Reports chills, Denies fever(s) and Reports headache(s) Eyes: Eyes: Reports no additional eye complaints ENT: Reports as per HPI, Reports headache(s), Reports nasal congestion, Reports sinus pain and Reports sore throat Cardiovascular: Cardiovascular: Reports no additional cardiovascular complaints, Denies chest pain and Denies dyspnea Respiratory: Respiratory: Reports no additional respiratory complaints, Reports cough and Denies dyspnea Gastrointestinal: Gastrointestinal: Reports as per HPI, Denies diarrhea, Denies nausea and Denies vomiting Genitourinary: Genitourinary: Reports as per HPI Musculoskeletal: Musculoskeletal: Reports no additional musculoskeletal complaints Neurologic: Reports system reviewed and no additional complaints, except as documented Psychiatric: Psychiatric: Reports no additional psychiatric complaints PMFSH Past Medical History Medical History Anxiety Degenerated intervertebral disc Depression Encounter for screening examination for sexually transmitted disease Foraminal stenosis of lumbar region Gonorrhea Osteoarthritis Trichomonal vaginitis Surgical History Surgical History Delivery by section 11/26/04 primary c/s 08/11/06 rpt c/s 05/16/08 rpt c/s w/tubal History of cholecystectomy History of hernia repair @ 5 months old History of hysteroscopy (04/28/22) hscope D&C/ Endometrial ablation History of orthopedic surgery rt wrist tendon transfer History of robot-assisted laparoscopic hysterectomy (09/28/23) Robotic assisted hysterectomy with bilateral salpingectomy History of tubal ligation (~05/16/08) Family History Family History Mother Chronic obstructive lung disease Hypertension Social History Social History Smoking packs per day: 1 Smoking cigarettes per day: 20.0 Years smoked: 20 Smoking pack-years: 20.00 Smoking status: Current every day smoker Tobacco type: e-cigarettes/vaping Alcohol intake: never Alcohol use details: 2 a year Substance use: never Substance use type: does not use Lack of Transportation: No Lack of Food: Never True Current Housing: I Have Housing Concerned About Future Housing: No Difficulty Paying Gas/Electric Bills: No Difficulty Paying for Meds: No Currently Unemployed: No Education: High School Diploma/GED Difficulty w/ Childcare or Family Care: No Living arrangements: with family Additional living arrangements comments: CHILDREN Occupation/Education: occupation 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
== END 2023-12-14 14:38 | disposition home or self-care (01) ==
PROVIDERS: Emergency Provider Nurse Practitioner Family; PCP Internal Medicine
DX: J06.9 Acute upper respiratory infection, unspecified (principal); F17.290 Nicotine dependence, other tobacco product, uncomplicated; M19.90 Unspecified osteoarthritis, unspecified site
CPT/HCPCS: 87081; 87880; 99213; G0463